=== PATIENT | female | born 1990 | race Caucasian/White ===

== ENCOUNTER → 2023-09-07 15:10 | Outpatient (REF) | payer MEDICAID, SELFPAY ==
--- NOTE | 2023-09-07 15:18 | ECG_ITS ---
Test Reason : ANXIETY DIS F41.1 Blood Pressure : / mmHG Vent. Rate : 073 BPM Atrial Rate : 073 BPM P-R Int : 152 ms QRS Dur : 082 ms QT Int : 400 ms P-R-T Axes : 062 010 046 degrees QTc Int : 440 ms Normal sinus rhythm Normal ECG No previous ECGs available Referred By: Leon Stevens Electronically Signed By:Huey Cortez
== END ==
LOC: HO.CARD 15:10
PROVIDERS: Visit Provider Nurse Practitioner Psychiatric/Mental Health
DX: F41.1 Generalized anxiety disorder (principal)
CPT/HCPCS: 93005

== ENCOUNTER → 2023-09-07 15:18 | Outpatient (BNV) | payer SELFPAY | PROVIDERS: Visit Provider Internal Medicine Cardiovascular Disease | DX: F41.1 Generalized anxiety disorder (principal) | CPT/HCPCS: 93010 ==

== ENCOUNTER 2025-01-31 11:07 | Emergency (ER) | payer MEDICAID, SELFPAY ==
--- NOTE | ~2025-01-31 | CT_ITS ---
EXAMINATION: CT ABDOMEN AND PELVIS WITHOUT CONTRAST CLINICAL INFORMATION: Bilateral flank pain. COMPARISON: None available. TECHNIQUE: Multidetector volumetric imaging was performed from the superior aspect of the liver through the pubic symphysis. Sagittal and coronal reformatted images were obtained on the technologist's workstation. This CT examination was performed using dose optimization techniques as appropriate, variously including the following: *Automated exposure control *Adjustment of mA and/or kV according to patient size (this includes techniques or standardized protocols for targeted exams where dose is matched to indication/reason for exam; i.e. extremities or head) *Use of iterative reconstruction technique DLP: 511 mGy centimeter. FINDINGS: Inadequate evaluation of the intra-abdominal organs and vascular structures due to lack of IV contrast. LUNG BASES: Noncalcified micronodules, right lower lung lobe. LIVER, GALLBLADDER, AND BILIARY TREE: Liver measures 15 cm. No pericholecystic fluid collection or gallbladder wall thickening. No intrahepatic or extrahepatic biliary ductal dilatation. PANCREAS: Fatty substitution sparing the head. SPLEEN: 8 cm. ADRENAL GLANDS: No nodular lesion. KIDNEYS AND URETERS: Right kidney: No hydronephrosis. No nephrolithiasis. Left kidney: No hydronephrosis. There is a 1.8 cm low density with the posterior inferior focal calcification centered the corticomedullary junction midportion/lower pole. BLADDER: Collapsed. GASTROINTESTINAL TRACT: [Small hiatal hernia. Appendix is normal. Abundant stool throughout the large intestine. No intestinal obstruction pattern. No pneumatosis intestinalis. No pneumoperitoneum. No ascites. ABDOMINAL WALL: Diastases abdominal rectus muscles and fat-containing umbilical hernia. LYMPH NODES: No lymphadenopathy, mesenteric or retroperitoneal. VASCULAR: No aneurysm, abdominal aorta. Mixed plaques in the distal infrarenal abdominal aorta. PELVIC VISCERA: T-shaped contraceptive device likely intrauterine. 1.8 cm dominant follicle, left adnexa. .There is gas within the vagina. OSSEOUS STRUCTURES: Spondylosis L4-5 and L5-S1. Spondylolysis pars interarticularis L5-S1 without listhesis. Sclerosis and the sacroiliac joints bilaterally. Schmorl node superior endplate T10. S-shaped curvature of the thoracolumbar spine. CT/CT abdomen pelvis wo IV con IMPRESSION: Acute airspace disease, right lower lung lobe. 1.8 cm complex partially calcified Bosniak type II cyst, left kidney. No hydronephrosis. Spondylolysis pars interarticularis L5-S1 without listhesis. Small fat-containing umbilical hernia and diastases abdominal rectus muscles. Small hilar hernia. Liposubstitution, pancreas. Fleischner guidelines were followed. Electronically signed by: Lucio Iraheta MD 01/31/2025 03:50 PM EDT
[2025-01-31 11:37] VITALS: BP 128/92; PULSE 91; RESP 16; TEMP 36.6; O2SAT 100; BMI 28.7
--- NOTE | 2025-01-31 11:38 | ED.BACK ---
HPI - Back Pain/Injury General Chief Complaint: Back Pain/Injury Stated Complaint: Lower Back/ Side Pain (Both), Vomitting Time Seen by Provider: 01/31/25 14:25 Source: patient Mode of arrival: ambulatory Limitations: no limitations History of Present Illness ED Provider: CLIFTON ROMAN PA-C HPI Narrative: 34-year-old female presents to the ED today for evaluation of severe bilateral flank pain wrapping around to lower abdomen x5 days. No hx of similar. Reports subjective fevers, nausea, vomiting. Denies diarrhea or constipation. Normal bowel movement yesterday. Denies dysuria, hematuria, abnormal vaginal discharge. Denies bowel or bladder incontinence or retention, saddle anesthesia. No history of spinal surgery or IV drug use. Related Data Previous Rx's ?Medication ?Instructions ?Recorded levofloxacin 750 mg tablet 750 mg PO Q24H 5 days #5 tabs 01/31/25 ondansetron 4 mg disintegrating 4 mg PO DAILY PRN nausea and 01/31/25 tablet vomiting 5 days #10 tabs Allergies Allergy/AdvReac Type Severity Reaction Status Date / Time No Known Allergies Allergy Verified 01/31/25 11:40 [No Known Allergies*] Review of Systems Review of Systems: Yes all other systems are reviewed and are negative PMFSH Past Medical History Attestation statement: The following information was validated with the patient. Source: old records reviewed and nursing notes reviewed Medical History Insomnia GERD (gastroesophageal reflux disease) Anxiety Social History Social History Alcohol intake: current Alcohol intake frequency: holidays/special occasions only Substance Use Type: Marijuana Physical Exam Vital Signs: Vital Signs: Last Vital Signs Temp 97.3 F 01/31/25 17:38 Pulse 69 01/31/25 17:38 Resp 16 01/31/25 17:38 BP 112/54 L 01/31/25 17:38 Pulse Ox 96 01/31/25 17:38 O2 Del Method Room Air 01/31/25 17:38 BMI result Body Mass Index 28.7 hypertensive, afebrile General: well appearing, in no acute distress. Skin: Warm, dry, intact. No rashes or lesions. Head: Normocephalic, atraumatic. EENT: Hearing is intact b/l. Conjunctiva clear. PERRLA. EOM intact. Moist mucous membranes.? Cardiac: Chest wall symmetric. RRR Lungs: Normal respiratory effort without accessory muscle use. CTA bilaterally Abdomen: soft, nondistended, tender to palpation of both right lower and left lower quadrants. No rebound tenderness or guarding. Active bowel sounds x4. No CVAT bilaterally. Back: No midline spinous or paraspinal tenderness. No step off deformity. Ext: Upper and lower extremities atraumatic, without tenderness, deformity, swelling or erythema Neuro: AOx3. Normal speech. Strength 5/5 intact throughout. No saddle anesthesia. Sensation intact to light touch. NV intact distally. Ambulating with steady gait. Course Course Course Narrative: 34 yo female with no sig PMH here with c/o 5 days of low back pain and it wraps around both sides of the abdomen. She reports n/v as well but no diarrhea. No urinary symptoms. She is not on blood thinners, she has no bowel bladder or incontinence, no saddle anesthesia, no IVDA. She reports she has pain no matter what she does. She states the pain is severe. At this time labs, UA ordered, defer further work up. this is a RAPID medical screening exam the rest of the history and physical exam is to be done by the main provider. HIMANSHU 01/31/25 1140am. Reevaluation(s) Reevaluation #1: 1538 -- CBC with leukocytosis to 11.5. No left shift. No anemia. H&H stable. Chemistry without acute electrolyte abnormality requiring intervention. No TATI. Normal liver function. Lipase WNL. Beta quant undetectable, not . CRP elevated to 0.98. Urine dark yellow with positive nitrites, trace leukocyte esterase, 4+ urine bacteria. 11-20 squamous epithelial cells, question contamination however given positive nitrites, will treat for UTI. CT pending. > medicated with Toradol and Zofran on arrival. Pain returned, morphine ordered. Fluids running. Lactic and blood cultures added. Ceftriaxone ordered. 1729 -- CT a/p without evidence of pyelonephritis. lactic wnl. > patient clinically has pyelonephritis. treated with ceftriaxone in ED. will discharge home on levofloxacin and zofran. tolerating PO in ED. reports pain improvement. she does not meet criteria for admission. > Patient has remained stable throughout ED visit today. Discussed worrisome signs and symptoms and when to return to the ED. All questions answered at this time. Patient is agreeable with disposition and stable for discharge. Medications Administered Discontinued Medications Generic Name Dose Route Start Last Admin Trade Name Donyq PRN Reason Stop Dose Admin Ceftriaxone Sodium 1 gm 01/31/25 15:34 01/31/25 16:45 Ceftriaxone Sodium 1 Gm Vial IVPUSH 01/31/25 15:35 1 gm ONCE ONE Administration Sodium Chloride 1,000 mls @ 999 mls/hr 01/31/25 15:00 01/31/25 16:20 Ns IV 01/31/25 16:00 Infused .Q1H1M MARK Infusion Ketorolac Tromethamine 30 mg 01/31/25 11:40 01/31/25 11:44 Ketorolac Tromethamine 30 Mg/Ml Vial IM 01/31/25 11:41 30 mg ONCE ONE Administration Morphine Sulfate 4 mg 01/31/25 14:47 01/31/25 15:19 Morphine Sulfate 4 Mg/Ml Cartridge IVPUSH 01/31/25 14:48 4 mg ONCE ONE Administration Protocol Ondansetron HCl 4 mg 01/31/25 11:40 01/31/25 11:44 Ondansetron Odt 4 Mg Tab.Rapdis TRANSLINGU 01/31/25 11:41 4 mg ONCE ONE Administration Medical Decision Making Medical Decision Making [facility] Narrative: 34-year-old female presents to the ED today for evaluation of severe bilateral flank pain wrapping around to lower abdomen x5 days. Hypertensive, afebrile. She is nontoxic appearing in no acute distress. On exam, abdomen is soft, nondistended, tender to palpation of both right lower and left lower quadrants. No rebound tenderness or guarding. Active bowel sounds x4. No CVAT bilaterally. Differential diagnosis includes UTI, pyelonephritis, renal colic, nephrolithiasis, hydronephrosis, constipation, colitis, IUP Unlikely cauda equina, Guillain-Cutler, epidural abscess, cord compression Labs, UA ordered from triage. Will add on CT a/p. Differential Diagnosis Differential Diagnoses: The differential diagnosis associated with the presentation includes as above Admission/Observation not indicated. Lab Data [facility] Lab Attestation statement: I reviewed the patient's lab results. as above. 01/31/25 11:51 01/31/25 11:51 Labs: Lab Results 01/31/25 01/31/25 01/31/25 Range/Units 11:51 14:53 16:22 WBC 11.5 H (4.8-10.8) X10*3/uL RBC 4.35 (4.20-5.50) X10*6/uL Hgb 13.0 (12.0-16.0) g/dl Hct 38.6 (37.0-47.0) % MCV 88.7 (80.0-98.0) fL MCH 29.9 (27.0-33.0) pg MCHC 33.7 (31.0-35.0) g/dl RDW 13.6 (11.0-16.0) % Plt Count 309 (160-400) X10*3/uL MPV 10.4 (9.4-12.3) fL Immature Gran % (Auto) 0.3 (0.0-0.4) % Neut % (Auto) 61.0 (45-73) % Lymph % (Auto) 32.1 (20-40) % Archer % (Auto) 5.3 (2-11) % Eos % (Auto) 1.0 (0-4) % Baso % (Auto) 0.3 (0-2) % Lymph # (Auto) 3.7 (1.2-4.9) X10*3/uL Archer # (Auto) 0.6 (0.1-1.2) X10*3/uL Eos # (Auto) 0.1 (0.0-0.4) X10*3/uL Baso # (Auto) 0.0 (0.0-0.2) X10*3/uL Abs Immat Gran (auto) 0.04 H (0.00-0.03) X10*3/uL Absolute Neuts (auto) 7.0 (2.0-8.3) x10*3/uL Absolute Nucleated RBC 0.000 (0.0-0.012) X10*3/uL Nucleated RBC % (auto) 0.0 (0.0-0.2) /100WBC Sodium 136 (135-145) mmol/L Potassium 3.6 (3.3-5.1) mmol/L Chloride 107 (96-108) mmol/L Carbon Dioxide 22 (22-29) mmol/L Anion Gap 11 L (12-20) BUN 12 (9-16) mg/dL Creatinine 0.83 (0.5-1.4) mg/dL Estim Creat Clear Calc 90.9 Estimated GFR > 60 Random Glucose 110 (60-115) mg/dL Lactic Acid 0.8 (0.5-2.0) mmol/L Calcium 9.5 (8.4-10.2) mg/dL Magnesium 1.6 (1.6-2.6) mg/dL Total Bilirubin 1.0 (0.0-1.0) mg/dL Direct Bilirubin 0.3 (0.0-0.5) mg/dL AST 29 (5-31) U/L ALT 26 (0-31) U/L Alkaline Phosphatase 111 (39-117) U/L C-Reactive Protein 0.98 H (< or = 0.50) mg/dL Total Protein 7.4 (6.5-8.0) g/dL Albumin 4.4 (3.5-5.0) g/dL Lipase 22 (8-78) U/L Beta HCG, Quant < 2 mIU/mL Urine Color Dark Yellow Urine Appearance Cloudy Urine pH 6.5 (5.0-9.0) Ur Specific [place] >= 1.030 H (1.005-1.025) Urine Protein 30 (1+) H (Neg-Trace) mg/dL Urine Glucose (UA) Negative (Negative) mg/dL Urine Ketones 15 (Negative) mg/dL Urine Blood Negative (Negative) Urine Nitrite Positive H (Negative) Ur Leukocyte Esterase Trace H (Negative) Urine RBC 0-2 (0-2) /HPF Urine WBC 0-5 (0-5) /HPF Ur Squamous Epith Cells 11-20 (0-2) /HPF Urine Bacteria 4+ (None Seen) Hyaline Casts 0-2 (0-2) /LPF Independent Interpretation I performed an independent interpretation of an: CT Scan Interpretation: CT A/P without perinephric stranding Radiology Impression Discussion of test interpretation with radiology: I have reviewed the radiologist's reading. Radiologist Impression: Date of Service: 01/31/25 Procedure(s): CT abdomen pelvis wo IV con Accession Number(s): [id number] cc: Physician,Unknown ; Mireille Roman~ Report Number: [id number]: Total DLP = 511.00 mGy-cm EXAMINATION: CT ABDOMEN AND PELVIS WITHOUT CONTRAST CLINICAL INFORMATION: Bilateral flank pain. COMPARISON: None available. TECHNIQUE: Multidetector volumetric imaging was performed from the superior aspect of the liver through the pubic symphysis. Sagittal and coronal reformatted images were obtained on the technologist's workstation. This CT examination was performed using dose optimization techniques as appropriate, variously including the following: *Automated exposure control *Adjustment of mA and/or kV according to patient size (this includes techniques or standardized protocols for targeted exams where dose is matched to indication/reason for exam; i.e. extremities or head) *Use of iterative reconstruction technique DLP: 511 mGy centimeter. FINDINGS: Inadequate evaluation of the intra-abdominal organs and vascular structures due to lack of IV contrast. LUNG BASES: Noncalcified micronodules, right lower lung lobe. LIVER, GALLBLADDER, AND BILIARY TREE: Liver measures 15 cm. No pericholecystic fluid collection or gallbladder wall thickening. No intrahepatic or extrahepatic biliary ductal dilatation. PANCREAS: Fatty substitution sparing the head. SPLEEN: 8 cm. ADRENAL GLANDS: No nodular lesion. KIDNEYS AND URETERS: Right kidney: No hydronephrosis. No nephrolithiasis. Left kidney: No hydronephrosis. There is a 1.8 cm low density with the posterior inferior focal calcification centered the corticomedullary junction midportion/lower pole. BLADDER: Collapsed. GASTROINTESTINAL TRACT: [Small hiatal hernia. Appendix is normal. Abundant stool throughout the large intestine. No intestinal obstruction pattern. No pneumatosis intestinalis. No pneumoperitoneum. No ascites. ABDOMINAL WALL: Diastases abdominal rectus muscles and fat-containing umbilical hernia. LYMPH NODES: No lymphadenopathy, mesenteric or retroperitoneal. VASCULAR: No aneurysm, abdominal aorta. Mixed plaques in the distal infrarenal abdominal aorta. PELVIC VISCERA: T-shaped contraceptive device likely intrauterine. 1.8 cm dominant follicle, left adnexa. .There is gas within the vagina. OSSEOUS STRUCTURES: Spondylosis L4-5 and L5-S1. Spondylolysis pars interarticularis L5-S1 without listhesis. Sclerosis and the sacroiliac joints bilaterally. Schmorl node superior endplate T10. S-shaped curvature of the thoracolumbar spine. CT/CT abdomen pelvis wo IV con IMPRESSION: Acute airspace disease, right lower lung lobe. 1.8 cm complex partially calcified Bosniak type II cyst, left kidney. No hydronephrosis. Spondylolysis pars interarticularis L5-S1 without listhesis. Small fat-containing umbilical hernia and diastases abdominal rectus muscles. Small hilar hernia. Liposubstitution, pancreas. Fleischner guidelines were followed. Electronically signed by: Lucio Iraheta MD 01/31/2025 03:50 PM EDT External Record Review External record reviewed: Inpatient record Prescription Management I considered prescription management with: Pain Medication and Antibiotic (levofloxacin) Social Determinants Patient?s care significantly limited by Social Determinants of Health including: Other Social Determinant of Health Critical Care Time Critical Care Time Critical Care Time: Yes Total Critical Care Time: 31 Attestation: Critical care time in the amount of 31 minutes has been provided to the patient in terms of direct patient care, frequent reevaluation on IV morphine, review and interpretation of medical data and results, and management of potentially life-threatening conditions. This is all outside of any medical procedures. Discharge Plan Discharge Clinical Impression: Pyelonephritis Patient Disposition: Home, Self-Care Instructions: Kidney Infection (ED) Additional Instructions: Your blood work today is reassuring. Your urine is infected. Clinically, you have pyelonephritis (kidney infection). You were treated with a dose of antibiotics in the ED today. Levofloxacin is an antibiotic that has been sent to your pharmacy. Take this daily for 5 days. Take this to completion. Zofran is an antinausea medication that has been sent to your pharmacy. Take this as needed for nausea and vomiting. I recommend tylenol/motrin for pain. Make sure you are staying adequately hydrated. Follow up with your outpatient providers. Return with any new or worsening symptoms. In the case of an emergency call 911. Prescriptions: New levofloxacin 750 mg tablet 750 mg PO Q24H 5 Days Qty: 5 0RF ondansetron 4 mg tablet,disintegrating 4 mg PO DAILY PRN (Reason: nausea and vomiting) 5 Days Qty: 10 0RF Referrals: [facility] [Provider Group] Interventions: ED Discharge Assessment Last Done: 01/31/25 17:38 Discharge Date/Time: 01/31/25 17:46 Print Language: Slovenian
[2025-01-31] MEDS: Ondansetron ODT 4 MG TAB.RAPDIS TRANSLINGU (11:44)
[2025-01-31] MEDS: Ketorolac Tromethamine 30 MG/ML VIAL IM (11:44)
[2025-01-31 11:54] LABS: MANUAL DIFF FLAG NO
[2025-01-31 11:57] LABS: Basophils Percent Auto 0.3 % (0-2); Eosinophils Absolute Auto 0.1 X10*3/uL (0.0-0.4); Hematocrit 38.6 % (37.0-47.0); Imm Gran Abs Auto 0.04 X10*3/uL (0.00-0.03); Imm Gran Pct Auto 0.3 % (0.0-0.4); Lymphocytes Absolute Auto 3.7 X10*3/uL (1.2-4.9); Lymphocytes Percent Auto 32.1 % (20-40); Mean Corpuscular HGB Conc 33.7 g/dl (31.0-35.0); Mean Corpuscular Hemoglobin 29.9 pg (27.0-33.0); Mean Corpuscular Volume 88.7 fL (80.0-98.0); Mean Platelet Volume 10.4 fL (9.4-12.3); Monocytes Absolute Auto 0.6 X10*3/uL (0.1-1.2); Monocytes Percent Auto 5.3 % (2-11); Platelet Count 309 X10*3/uL (160-400); Red Blood Count 4.35 X10*6/uL (4.20-5.50); Red Cell Distribution Width 13.6 % (11.0-16.0); White Blood Count 11.5 X10*3/uL (4.8-10.8)
[2025-01-31 12:19] LABS: Alanine Aminotransferase 26 U/L (0-31); Albumin Level 4.4 g/dL (3.5-5.0); Alkaline Phosphatase 111 U/L (39-117); Anion Gap 11 (12-20); Aspartate Amino Transferase 29 U/L (5-31); Bilirubin Direct 0.3 mg/dL (0.0-0.5); Blood Urea Nitrogen 12 mg/dL (9-16); C Reactive Protein 0.98 mg/dL (< or = 0.50); Calcium 9.5 mg/dL (8.4-10.2); Carbon Dioxide 22 mmol/L (22-29); Chloride 107 mmol/L (96-108); Creatinine Clr Calc Pharmacy 90.9; Estimated Glomerular Filt Rate > 60; Glucose Random 110 mg/dL (60-115); Lipase 22 U/L (8-78); Magnesium 1.6 mg/dL (1.6-2.6); Potassium 3.6 mmol/L (3.3-5.1); Sodium 136 mmol/L (135-145); Total Protein 7.4 g/dL (6.5-8.0)
[2025-01-31 12:20] LABS: HCG Quantitative < 2 mIU/mL
[2025-01-31 15:09] LABS: Appearance Urine Cloudy; Color Urine Dark Yellow; Glucose Urine UA Negative (Negative); Leukocyte Esterase Urine Trace (Negative); Nitrite Urine Positive (Negative); PH 6.5 (5.0-9.0); Specific Gravity - Urine >= 1.030 (1.005-1.025); UMIC TRIGGER UACC YES; Urine Blood Negative (Negative); Urine Ketones 15 mg/dL (Negative); Urine Protein 30 (1+) mg/dL (Neg-Trace)
[2025-01-31 15:17] LABS: Bacteria Urine 4+ (None Seen); Hyaline Casts Urine 0-2 /LPF (0-2); RBC Urine 0-2 /HPF (0-2); UACC Culture Trigger YES; WBC Urine 0-5 /HPF (0-5)
[2025-01-31] MEDS: 0.9 % Sodium Chloride 1,000 ML 999 ML IV (15:19)
[2025-01-31] MEDS: Morphine Sulfate 4 MG/ML CARTRIDGE IVPUSH (15:19)
--- NOTE | 2025-01-31 15:24 | PC.NURSE ---
patient a&ox3, iv inserted, ivf running per order, pt medicated for 5/10 pain, plan of care ongoing
[2025-01-31 16:25] VITALS: BP 131/68; PULSE 60; RESP 16; TEMP 36.5; O2SAT 99
[2025-01-31] MEDS: cefTRIAXone sodium 1 GM VIAL IVPUSH (16:45)
--- NOTE | 2025-01-31 16:46 | PC.NURSE ---
blood cultures drawn, iv abx hung per order
[2025-01-31 16:49] LABS: Lactic Acid 0.8 mmol/L (0.5-2.0)
[2025-01-31 17:38] VITALS: BP 112/54; PULSE 69; RESP 16; TEMP 36.3; O2SAT 96
== END 2025-01-31 17:46 | disposition home or self-care (01) ==
PROVIDERS: Emergency Medicine; Physician Assistant Medical; Emergency Provider Emergency Medicine
DX: N12 Tubulo-interstitial nephritis, not specified as acute or chronic (principal); R10.30 Lower abdominal pain, unspecified
CPT/HCPCS: 36415; 74176; 80048; 80076; 81001; 81003; 83605; 83690; 83735; 84702; 85025; 86140; 87040; 87086; 96361; 96372; 96374; 96375; 99284; J0696; J1885; J2270

== ENCOUNTER → 2025-01-31 14:49 | Outpatient (BNV) | payer MEDICAID, SELFPAY | PROVIDERS: Emergency Provider Emergency Medicine; Visit Provider Radiology Diagnostic Radiology | DX: N28.1 Cyst of kidney, acquired (principal); K42.9 Umbilical hernia without obstruction or gangrene; K44.9 Diaphragmatic hernia without obstruction or gangrene; M47.817 Spondylosis without myelopathy or radiculopathy, lumbosacral region; K86.89 Other specified diseases of pancreas; J98.4 Other disorders of lung | CPT/HCPCS: 74176 ==